=== PATIENT | male | born 1995 | race African-American/Black ===

== ENCOUNTER 2019-11-10 14:47 | Emergency (ER) | payer BC ==
[~2019-11-10] VITALS: Ht 170.2 cm; Wt 104.3 kg
[~2019-11-10 14:47] MED LIST: NOHOMEMEDICATIONS
[2019-11-10 17:23] VITALS: BP 140/82
== END 2019-11-10 17:23 | disposition short-term general hospital (02) ==
LOC: ER 14:47
DX: S05.12XA Contusion of eyeball and orbital tissues, left eye, initial encounter (principal); E11.9 Type 2 diabetes mellitus without complications; G47.30 Sleep apnea, unspecified; W50.0XXA Accidental hit or strike by another person, initial encounter; Y92.89 Other specified places as the place of occurrence of the external cause; Y93.89 Activity, other specified; Y99.8 Other external cause status

== ENCOUNTER 2019-12-31 12:23 | Emergency (ER) | payer BC ==
[~2019-12-31] VITALS: Ht 172.7 cm; Wt 104.3 kg
[2019-12-31 12:25] VITALS: BP 183/113
== END 2019-12-31 13:07 | disposition home or self-care (01) ==
LOC: ER 12:23
DX: L25.9 Unspecified contact dermatitis, unspecified cause (principal); E11.9 Type 2 diabetes mellitus without complications